=== PATIENT | male | born 1945 | race Caucasian/White ===

== ENCOUNTER → 2016-12-22 | Outpatient (CLI) | payer OTHER | LOC: BMCIMAGING 12:34 | PROVIDERS: ATTEND Internal Medicine Rheumatology | DX: Z13.828 Encounter for screening for other musculoskeletal disorder (principal); M11.262 Other chondrocalcinosis, left knee ==

== ENCOUNTER → 2017-07-01 | Outpatient (CLI) | payer OTHER | LOC: FIMAGING 12:54 | PROVIDERS: ATTEND Nurse Practitioner Adult Health | DX: M75.121 Complete rotator cuff tear or rupture of right shoulder, not specified as traumatic (principal); M75.81 Other shoulder lesions, right shoulder; M19.011 Primary osteoarthritis, right shoulder ==

== ENCOUNTER → 2017-08-28 | Outpatient (CLI) | payer OTHER | LOC: FIMAGING 10:01 | PROVIDERS: ATTEND Internal Medicine Endocrinology, Diabetes & Metabolism | DX: Z13.820 Encounter for screening for osteoporosis (principal); M85.80 Other specified disorders of bone density and structure, unspecified site ==

== ENCOUNTER 2017-09-24 11:07 | Observation (INO) | payer OTHER ==
[2017-09-24] MEDS ORDERED: DIAZEPAM 5 MG TAB PO ONE (11:15)
[2017-09-24] MEDS ORDERED: FAMOTIDINE 20 MG TAB PO ONE (11:15)
[2017-09-24] MEDS ORDERED: NS 1,000 ML IV ONE (11:15)
[2017-09-24] MEDS ORDERED: diphenhydrAMINE 25 MG CAP PO ONE ×2 (11:15→11:41)
[2017-09-24] MEDS ORDERED: ASPIRIN EC 325 MG TAB PO ONE ×2 (11:15→11:41)
--- NOTE | 2017-09-24 11:36 | CPEKG ---
Heart Rate: 56 RR Interval: 1071 P-R Interval: 144 QRSD Interval: 90 QT Interval: 440 QTC Interval: 425 P [place]: 12 QRS [place]: 37 T Wave [place]: 15 EKG Severity - NORMAL ECG - EKG Impression: SINUS RHYTHM Electronically Signed By: Catherine Rivera 24-Sep-2017 13:31:21
[2017-09-24] MEDS ORDERED: DIAZEPAM 5 MG TAB ONE (11:42)
[2017-09-24] MEDS ORDERED: CLOPIDOGREL BISULFATE 75 MG TAB PO ONE ×2 (11:45→15:33)
[2017-09-24 11:52] LABS: PLATELET COUNT 250 10^3/uL (150-400)
[2017-09-24 12:10] LABS: INR 0.97 (0.83-1.16); PROTIME(PATIENT) 13.1 SEC (12.0-15.0)
[2017-09-24] MEDS ORDERED: LIDOCAINE 1% 300 MG/30 ML SDV ONE (12:34)
[2017-09-24] MEDS ORDERED: fentaNYL 100 MCG/2 ML INJ ONE ×3 (12:35→14:49)
[2017-09-24] MEDS ORDERED: MIDAZOLAM 2 MG/2 ML VIAL ONE ×4 (12:35→14:49)
[2017-09-24] MEDS ORDERED: IOPAMIDOL (ISOVUE-370) 150 ML BTL IV ONE ×2 (12:35→14:32)
--- NOTE | 2017-09-24 12:36 | PDPROPOC ---
Sedation Plan of Care Sedation Plan of Care: vital signs stable, mental status noted, patient educated of risks, benefits, alternatives, patient can tolerate sedation ASA Classification: ASA 2 Planned drugs: fentanyl, midazolam Mallampati Score: Class 2 Mallampati Reference Image: Patient passed 3-3-2 rule?: Yes
--- NOTE | 2017-09-24 12:36 | PDHPUP ---
History & Physical Update H&P update statement: This history and physical update is based on an assessment of the patient which was completed after admission or registration (within 24 hours), but prior to the surgery/procedure. H&P update: H&P reviewed & patient examined, no change in patient's condition since H&P completed
[2017-09-24] MEDS ORDERED: HEPARIN 10,000 UNIT/10 ML MDV (1,000 UNIT/ML) ONE ×2 (13:13→14:19)
[2017-09-24] MEDS ORDERED: NITROGLYCERIN 1,500 MCG/15 ML VIAL MISC ONE (14:30)
[2017-09-24] MEDS ORDERED: TEMAZEPAM 15 MG CAP PO PRN (15:33)
[2017-09-24] MEDS ORDERED: ONDANSETRON 4 MG/2 ML VIAL IVP PRN (15:33)
[2017-09-24] MEDS ORDERED: LORazepam 2 MG/ML INJ IVP PRN (15:33)
[2017-09-24] MEDS ORDERED: ATROPINE SULFATE 1 MG/10 ML SYR IVP PRN (15:33)
[2017-09-24] MEDS ORDERED: NITROGLYCERIN 0.4 MG BTL SL PRN (15:33)
--- NOTE | 2017-09-24 15:40 | PDDXCAT ---
Diagnostic Cath Note - . Date: 09/25/17 Java Developer Architect: Gareth Indication: CCC Class III and IV angina on medical treatment - Procedure Access: right groin Procedure: left heart catheterization, MELO injection - Materials Left Heart Cath size: 5F Left Heart Cath materials: standard multipack (JL4, JR4, pigtail) - Findings-Left Heart Catheterization LM: unobstructed LAD: 100% occluded LCX: OM1 90% RCA: Stents patent MELO: Patent Complications: Dissection OM with failed stent placement, Balloon only Estimated blood loss: <100ml Closure method: Angioseal Assessment: Unstable angina with culprit OM1. Patent MELO. Patent RCA stent Plan: PCI OM! Intervention: Procedure: Balloon angioplasty of the obtuse marginal branch. Indications: Unstable angina with elevation in troponin and 3 days of crescendo chest pain. Complications: Dissection of the obtuse marginal branch. Veronique procedure old myocardial infarction. Inability to deliver stent secondary to proximal calcification. After reviewing diagnostic angiograms it was elected to proceed with PCI. Patient was anticoagulated with heparin. Patient sheath was upsized to a 7 Andorran in the right femoral artery. Using a 7 Andorran JL4 guiding catheter left main coronary was selectively intubated. Therapeutic ACT was confirmed. For details of the procedure please see attached computer report. Using a 0.014 luge wire multiple attempts at crossing the obtuse marginal branch stenosis were made. The takeoff of the marginal branch was 90 degrees from this body of the circumflex artery at the proximal segment was heavily calcified. The lesion was 90 degrees from the origin with critical stenosis. After multiple attempts and multiple reshaped being the luge wire eventually did cross into the culprit vessel. Attempts at crossing with a 2.25 balloon were made but the balloon would not enter the calcified segment. A 0.014 mailman wire was used as a jen. Again this required significant manipulation to get the wire into the superior limb of the obtuse marginal branch. This allowed passage of a 1.25 emerge balloon. 3 inflations were performed with continued antegrade flow. Attempts at crossing with a 2.25 emerge balloon were made but failed. Attempts at using both a GuideLiner catheter and a Twin Pass to allow passage of a 2nd wire were made but failed. Attempts at crossing into the culprit vessel with a Kinetix Plus wire were made but failed. Wires were withdrawn ultimately. It was elected to up size to a 7 Andorran EBU 3.75 guiding catheter. Using a 0.014 airplane pilot photogrammetry 50 wire with multiple manipulations this crossed into the obtuse marginal branch across the stenosis. The 2.25 emerge balloon crossed. 3 inflations were performed to 2.5 mm. This showed significant improvement in luminal diameter with a linear dissection. There was antegrade flow. There was GALINDO grade 1-2 flow distally. Attempts at crossing with a synergy stent were made but failed. Using the Twin Pass catheter and Sanovas wire was advanced into the distal obtuse marginal branch. Using a jen technique this still did not allow passage of synergy stent. Attempts at other brands of stent including a Xience and a bare metal stent were made but failed. The 2.25 balloon was then used to re-approach the dissected vessel. Prolonged inflations were performed. There was no compromise of the true circumflex which is codominant supplying the entire posterolateral wall. Final angiograms revealed GALINDO grade 1-2 flow in the distal obtuse marginal branch. No compromise proximally. It was elected to stop at this time since further intervention would require stenting across the osage circumflex with significant branch vessel threat. Patient was pain free with stable hemodynamics. Echocardiogram showed normal LV systolic function. EKG did not show significant changes. He was taken to recovery for continued care. Final diagnosis balloon angioplasty of the obtuse marginal branch complicated by dissection and veronique procedural myocardial infarction. This was tolerated well. Continued aggressive secondary prevention with clinical follow-up. Patient Problems: Problems Problem Status Onset Angina Active CAD - Coronary arteriosclerosis Active Coronary artery bypass grafting Active
[2017-09-24] MEDS ORDERED: NS 1,000 ML IV SCH (15:45)
--- NOTE | 2017-09-24 16:11 | CPEKG ---
Heart Rate: 53 RR Interval: 1132 P-R Interval: 148 QRSD Interval: 86 QT Interval: 456 QTC Interval: 429 P [place]: 5 QRS [place]: 33 T Wave [place]: 36 EKG Severity - NORMAL ECG - EKG Impression: SINUS RHYTHM EKG Impression: ANTERIOR T-WAVE ABNORMALITIES EKG Impression: COMPARED WITH 09/24/2017 11:35 A.M., ANTERIOR T-WAVE ABNORMALITIES ARE ARE MORE EKG Impression: PRONOUNCED Electronically Signed By: Catherine Rivera 25-Sep-2017 18:17:41
--- NOTE | 2017-09-24 19:26 | ECHO ---
[email or web address] [address] Main: [phone] Fax: Transthoracic Echocardiogram Name: JOVITA HERNANDEZ MR#: [id number] Study Date: 09/24/2017 Study Time: 04:16 PM Date of : 1945 Age: 72 year(s) Height: 177.8 cm (70 in.) Weight: 76.2 kg (168 lb.) BSA: 1.94 m2 Gender: Male Examination: Echo Indication: PCI with dissected OM/Eval LV function Image Quality: Contrast: Requested by: Vin Servin BP: 147 mmHg/93 mmHg Heart Rate: Rhythm: Indication: PCI with dissected OM/Eval LV function Procedure Staff Box Stapler: Caren Castellon Reading Physician: Catherine Rivera Requesting Provider: Conclusions: Normal size left ventricle. The ejection fraction is estimated to be 40-45 %. LV septal wall and inferior segments are hypokinetic. Mildly dilated right ventricle. Normal RV function. Mild mitral valve regurgitation is present. Mild tricuspid regurgitation is present. The pulmonary artery pressure is normal. Mildly dilated aortic root measuring 4.4 cm. No previous echocardiogram available for comparison. Measurements: Chambers Valvular Assessment AV/MV Valvular Assessment TV/PV Normal Normal Normal Name Value Range Name Value Range Name Value Range IVSd (2D): 0.7 cm (0.6 cm-1.1 AV Vmax: 0.87 m/s (1 m/s-1.7 TR Vmax: 2.71 mm/s ( - ) cm) m/s) TR PGmax: 29 mmHg ( - ) LVDd (2D): 4.6 cm (4.2 cm-5.9 AV maxP mmHg ( - ) syst. PAP: 34 mmHg ( - ) cm) MV E Vmax: 0.95 m/s ( - ) LVDs (2D): 3.4 cm (2.1 cm-4 MV A Vmax: 0.67 m/s ( - ) cm) MV E/A: 1.42 ( - ) LVPWd (2D): 0.8 cm (0.6 cm-1 cm) EF Range: 40-45 % Continued Measurements: Chambers Valvular Assessment TV/PV Name Value Name Value Patient: JOVITA HERNANDEZ Study Date: 09/24/2017 Page 1 of 2 04:16 PM LADs: 4.2 cm CVP (est.): 5 mmHg LADs Lon.5 cm LA Area: 22.0 cm2 Findings: Left Ventricle: Normal size left ventricle. The ejection fraction is estimated to be 40-45 %. LV septal wall and inferior segments are hypokinetic. Right Ventricle: Mildly dilated right ventricle. Normal RV function. Left Atrium: The left atrium is normal in size. Right Atrium: The right atrium is normal in size. Mitral Valve: The mitral valve is normal in appearance and function. Mild mitral valve regurgitation is present. Aortic Valve: The aortic valve is normal in appearance and function. Trivial aortic valve regurgitation. Tricuspid Valve: The tricuspid valve is normal in appearance and function. Mild tricuspid regurgitation is present. The pulmonary artery pressure is normal. Pulmonic Valve: The pulmonic valve is normal in appearance and function. Trivial pulmonic valve regurgitation. Aorta: The aorta is normal. Mildly dilated aortic root measuring 4.4 cm. Pericardium: No pericardial effusion. Exam Comments: For accurate EF, repeat a lmt study when pt can roll onto left side.. (No Signature Object) Patient: JOVITA HERNANDEZ Study Date: 09/24/2017 Page 2 of 2 04:16 PM [id number]
[2017-09-24] MEDS ORDERED: DOCUSATE SODIUM 100 MG CAP PO SCH (21:00)
[2017-09-24] MEDS ORDERED: ALPRAZolam 1 MG TAB PO SCH (21:00)
[2017-09-24] MEDS ORDERED: MELATONIN 3 MG TAB PO SCH (21:00)
[2017-09-24] MEDS ORDERED: QUEtiapine FUMARATE 50 MG TAB PO SCH (21:00)
[2017-09-25] MEDS ORDERED: ACETAMINOPHEN 325 MG TAB ONE (02:02)
[2017-09-25 04:27] LABS: PLATELET COUNT 203 10^3/uL (150-400)
[2017-09-25 04:50] LABS: CREATINE KINASE 403 IU/L (0-224)
[2017-09-25] MEDS ORDERED: LEVOTHYROXINE 50 MCG TAB PO SCH (06:00)
[2017-09-25 07:18] VITALS: PULSE 61; RESP 15; TEMP 97.9; O2SAT 92
[2017-09-25] MEDS ORDERED: RAMIPRIL 2.5 MG CAP PO SCH (09:00)
[2017-09-25] MEDS ORDERED: HYDROCHLOROTHIAZIDE 25 MG TAB PO SCH (09:00)
[2017-09-25] MEDS ORDERED: ARIPiprazole 2 MG TAB PO SCH (09:00)
[2017-09-25] MEDS ORDERED: PANTOPRAZOLE SODIUM 40 MG TAB PO SCH (09:00)
[2017-09-25] MEDS ORDERED: buPROPion XL 150 MG TAB PO SCH (09:00)
[2017-09-25] MEDS ORDERED: CLOPIDOGREL BISULFATE 75 MG TAB PO SCH (09:00)
[2017-09-25] MEDS ORDERED: METOPROLOL SUCCINATE XR 100 MG TAB PO SCH (09:00)
[2017-09-25] MEDS ORDERED: ASPIRIN EC 325 MG TAB PO SCH (09:00)
--- NOTE | 2017-09-25 09:22 | PDDCSUM ---
Discharge Summary Discharge Summary: Admission date 09/24/2017 Discharge date 09/25/2017 Admission diagnosis: Unstable angina Discharge diagnosis: Unstable angina status post balloon angioplasty of the obtuse marginal branch Procedural myocardial infarction. Coronary artery disease status post bypass grafting with patent mammary artery to the LAD. Widely patent RCA stent. Hyperlipidemia. Status post arthroscopy of the right shoulder. Depression. Discharge medications: Please see the attached form 17. Follow-up Gareth one week referral cardiac rehabilitation. Procedures done during this hospitalization: Echocardiogram. Cardiac catheterization with balloon angioplasty of the obtuse marginal branch. Hospital course: 72-year-old male admitted to the hospital for diagnostic cardiac catheterization with 3 day history of atypical chest pain with borderline troponin. Cardiac catheterization revealed critical stenosis of the obtuse marginal branch and heavily calcified circumflex artery. PCI was performed. This was complicated by dissection of the obtuse marginal branch with reduced flow in the emliie procedural myocardial infarction with elevated CPK to the 400 range. He was asymptomatic without angina. He had stable hemodynamics. Echocardiogram done post procedure showed preserved LV function without involvement of the mitral valve. He was observed overnight no dysrhythmia was identified. On examination today blood pressure was 100/70. Heart rate was 65. Well-nourished male resting flat in bed. No JVP chest was clear without S4. Puncture site was healing well without ecchymosis erythema or edema. EKG showed sinus rhythm without ST-T changes. Patient be followed up with aggressive secondary prevention clinical follow-up. Results were discussed with the patient including dissection and emilie procedural myocardial infarction. He will be followed up as outlined above.
[2017-09-25 10:27] VITALS: BP 97/61
--- NOTE | 2017-09-25 13:58 | ASDISCHSUM ---
Discharge Information Plan Status:Home with No Needs Medically Cleared to Leave:09/24/2017 Discharge Date:09/25/2017 10:54 AM CM D/C Disposition: ADT D/C Disposition:Home, Routine, Self-Care Projected Discharge Date:09/25/2017 12:00 AM Transportation at D/C: Discharge Delay Reason: Follow-Up Date:09/25/2017 12:00 AM Discharge Slot: Final Diagnosis: Placement Information Patient Contact Information Contact Name:EVELIA Relationship:Daughter Address: Work Phone: City: [facility] Phone: State/Zip Code: Email: Financial Information Financial Class: Primary Plan Desc:MEDICARE OUTPATIENT Primary Plan Number:[id number] Secondary Plan Desc:[facility] PPO POS Secondary Plan Number:[id number] Assessment Information Intervention Information
== END 2017-09-25 10:54 | disposition home or self-care (01) ==
LOC: FCATH 11:07 → F2W 16:01
PROVIDERS: ADMIT Internal Medicine Interventional Cardiology; ATTEND Internal Medicine Interventional Cardiology
PROC: B2111ZZ Fluoroscopy of Multiple Coronary Arteries using Low Osmolar Contrast (ICD-10-PCS; principal; 2017-09-24)
DX: I25.119 Atherosclerotic heart disease of native coronary artery with unspecified angina pectoris (principal); I25.42 Coronary artery dissection; I97.790 Other intraoperative cardiac functional disturbances during cardiac surgery; I10 Essential (primary) hypertension; E78.5 Hyperlipidemia, unspecified; F32.9 Major depressive disorder, single episode, unspecified; K21.9 Gastro-esophageal reflux disease without esophagitis; I73.00 Raynaud's syndrome without gangrene; Z95.1 Presence of aortocoronary bypass graft; Z95.5 Presence of coronary angioplasty implant and graft
CPT/HCPCS: 92920; 93005; 93306; 93454; C1725; C1760; C1769; C1887; J1644; J2250; J3010; Q9967

== ENCOUNTER → 2018-01-22 | Outpatient (CLI) | payer OTHER | LOC: FIMAGING 12:52 | PROVIDERS: ATTEND Internal Medicine Endocrinology, Diabetes & Metabolism | DX: E04.1 Nontoxic single thyroid nodule (principal) ==

== ENCOUNTER → 2018-06-16 | Outpatient (CLI) | payer OTHER | LOC: BMCIMAGING 08:02 | PROVIDERS: ATTEND Urology | DX: N40.0 Benign prostatic hyperplasia without lower urinary tract symptoms (principal); R33.8 Other retention of urine; N28.1 Cyst of kidney, acquired; N20.0 Calculus of kidney ==

== ENCOUNTER 2018-07-01 07:32 | Observation (INO) | payer OTHER ==
[2018-07-01] MEDS ORDERED: LR 1,000 ML IV ONE (07:52)
[2018-07-01] MEDS ORDERED: LIDOCAINE 1% 2 ML INJ ID PRN (07:52)
[2018-07-01] MEDS ORDERED: VANCOMYCIN HCL/NORMAL SALINE 250 ML IV ONE (08:27)
[2018-07-01] MEDS ORDERED: GENTAMICIN SULFATE 120 MG in D5W 100 ML IV ONE (08:28)
[2018-07-01] MEDS ORDERED: MIDAZOLAM 2 MG/2 ML VIAL IVP ONE (08:58)
--- NOTE | 2018-07-01 09:00 | PDANEPAE ---
ANE History of Present Illness TURP for BPH ANE Past Medical History - Cardiovascular History Hx Hypertension: Yes Hx Arrhythmias: No Hx Chest Pain: No Hx Coronary Artery / Peripheral Vascular Disease: Yes Hx CHF / Valvular Disease: No Hx Palpitations: No Cardiovascular History Comment: CABG, 1990. last cath 08/2017 w/angioplasty - Pulmonary History Hx COPD: No Hx Asthma/Reactive Airway Disease: No Hx Recent Upper Respiratory Infection: No Hx Oxygen in Use at Home: No Hx Sleep Apnea: No Sleep Apnea Screening Result - Last Documented: Positive Pulmonary History Comment: MEG triggers only - Neurologic History Hx Cerebrovascular Accident: No Hx Seizures: No Hx Dementia: No - Endocrine History Hx Diabetes: Yes Endocrine History Comment: hypothyroid - Renal History Hx Renal Disorders: Yes Renal History Comment: BPH w/resulting bladder issues. cystitis. frequent UTI' s - Liver History Hx Hepatic Disorders: No - Neurological & Psychiatric Hx Hx Neurological and Psychiatric Disorders: Yes Neurological / Psychiatric History Comment: depresssion - Cancer History Hx Cancer: Yes Cancer History Comment: throat cancer - Congenital Disorder History Hx Congenital Disorders: No - GI History Hx Gastrointestinal Disorders: Yes Gastrointestinal History Comment: reflux. constipation - Other Health History Other Health History: wears glasses - Chronic Pain History Chronic Pain: No - Surgical History Prior Surgeries: cardiac caths w/stenting. CABG. radical neck resection for lymph node removal. perforated ulcer with open surgical repair ANE Review of Systems Review of Systems: - Exercise capacity METS (RN): 4 METS ANE Patient History - Allergies Allergies/Adverse Reactions: mussels Allergy (Verified 07/01/18 08:40) Abdominal Pain - Home Medications Home Medications: ALPRAZolam [Xanax 0.5 MG (*)] HS 09/22/17 [Last Taken 06/30/18 21:00] ARIPiprazole [Abilify 2 mg (*)] DAILY 09/22/17 [Last Taken 06/30/18 10:00] Aspirin [Aspirin 81mg (*)] HS 09/22/17 [Last Taken 06/24/18] Clopidogrel Bisulfate [Plavix (*)] DAILY 09/22/17 [Last Taken 06/24/18] Hydrochlorothiazide [HCTZ (*)] DAILY 09/22/17 [Last Taken 06/30/18 10:00] Levothyroxine [Synthroid 50 mcg (*)] DAILY06 09/22/17 [Last Taken 06/30/18 10:00 ] Melatonin [Melatonin 5 mg] HS 09/22/17 [Last Taken 06/30/18 21:00] Metoprolol Succinate Xr [Toprol Xl 100 mg (*)] DAILY 09/22/17 [Last Taken 10:00] Pantoprazole Sodium [Protonix 40mg (*)] DAILY 09/22/17 [Last Taken 06/30/18 10: 00] QUEtiapine FUMARATE [Seroquel 50 mg (*)] HS 09/22/17 [Last Taken 06/30/18 21:00] Ramipril [Altace 2.5mg (*)] DAILY 09/22/17 [Last Taken 06/30/18 10:00] buPROPion XL [Wellbutrin Xl] DAILY 09/22/17 [Last Taken 06/30/18 10:00] Lipitor DAILY 06/17/18 [Last Taken 06/30/18 21:00] Miralax 17 gm (*) 06/17/18 [Last Taken 06/30/18 21:00] - NPO status NPO Since - Liquids (Date): 06/30/18 NPO Since - Liquids (Time): 18:00 NPO Since - Solids (Date): 06/30/18 NPO Since - Solids (Time): 18:00 - Smoking Hx Smoking Status: Former smoker - Family Anes Hx Family Hx Anesthesia Complications: none ANE Labs/Vital Signs - Vital Signs Blood Pressure: 139/97 Heart Rate: 54 Respiratory Rate: 16 O2 Sat (%): 95 Height: 175.26 cm Weight: 74.843 kg ANE Physical Exam - Airway Neck exam: FROM Mallampati Score: Class 1 Mouth exam: normal dental/mouth exam - Pulmonary Pulmonary: no respiratory distress - Cardiovascular Cardiovascular: regular rate and rhythym - ASA Status ASA Status: II ANE Anesthesia Plan Anesthesia Plan: GA w LMA
[2018-07-01] MEDS ORDERED: fentaNYL 100 MCG/2 ML INJ ONE ×3 (09:07→13:14)
[2018-07-01] MEDS ORDERED: DEXAMETHASONE 4 MG/ML VIAL ONE ×2 (09:08)
[2018-07-01] MEDS ORDERED: PROPOFOL 200 MG/20 ML VIAL ONE (09:08)
[2018-07-01] MEDS ORDERED: ONDANSETRON 4 MG/2 ML VIAL ONE (09:08)
[2018-07-01] MEDS ORDERED: LIDOCAINE 2% 2 ML INJ ONE ×2 (09:09)
--- NOTE | 2018-07-01 09:18 | PDHPUP ---
History & Physical Update H&P update statement: This history and physical update is based on an assessment of the patient which was completed after admission or registration (within 24 hours), but prior to the surgery/procedure. H&P update: H&P reviewed & patient examined, no change in patient's condition since H&P completed, changes noted (Reported urine cx day, sens to vanco, gent - vanco started in preop. Otherwise all other components H&P up to date and accurate. )
[2018-07-01] MEDS ORDERED: ONDANSETRON 4 MG/2 ML VIAL IVP PRN (09:21)
[2018-07-01] MEDS ORDERED: ACETAMINOPHEN 325 MG TAB PO PRN (09:22)
[2018-07-01] MEDS ORDERED: HYDROmorphONE/DILAUDID 1 MG/ML INJ IVP PRN (09:23)
[2018-07-01] MEDS ORDERED: D5W LR 1,000 ML IV SCH (09:30)
[2018-07-01] MEDS ORDERED: LABETALOL HCL 5 MG/ML 20 ML MDV IVP PRN (10:10)
[2018-07-01] MEDS ORDERED: NALOXONE HCL 0.4 MG/ML INJ IVP PRN (10:10)
[2018-07-01] MEDS ORDERED: LR 500 ML IV PRN (10:10)
[2018-07-01] MEDS ORDERED: LIDOCAINE 2% JELLY 20 ML (UROJECT) ONE (10:29)
[2018-07-01] MEDS ORDERED: GENTAMICIN 100 MG/NACL 100 ML IV SCH (11:00)
[2018-07-01] MEDS ORDERED: HYDROCODONE/APAP 5/325 TAB ONE (11:02)
[2018-07-01] MEDS: fentaNYL 100 MCG/2 ML INJ IVP PRN ×4 (11:03→13:20)
[2018-07-01] MEDS: HYDROCODONE/APAP 5/325 TAB PO PRN ×2 (11:19→15:27)
[2018-07-01] MEDS ORDERED: HYDROmorphONE/DILAUDID 2 MG/ML INJ ONE (11:55)
[2018-07-01] MEDS: HYDROmorphONE/DILAUDID 2 MG/ML INJ IVP PRN ×2 (11:56→13:19)
--- NOTE | 2018-07-01 12:21 | GOP ---
DATE OF OPERATION: 07/01/2018 SURGEON: Minnie Warren MD ANESTHESIA: General. ANESTHESIOLOGIST: Austyn Branham MD PREOPERATIVE DIAGNOSIS: BPH with urinary retention. POSTOPERATIVE DIAGNOSIS: BPH with urinary retention. PROCEDURE PERFORMED: Cystoscopy and transurethral resection of prostate in saline. FINDINGS: Obstructed prostate. SPECIMENS: Prostate chips. ESTIMATED BLOOD LOSS: 75 mL. INDICATIONS: The patient presented to my office with significant urinary retention, as well as recurrent UTIs. He was scoped in my clinic and he had a prostate that was very obstructing and recommended management was a transurethral resection of the prostate. We discussed the risks of bleeding, infection, pain, injury to the urethra, the bladder, urinary sphincter, small risk of urinary incontinence, small risk of erectile dysfunction, and risk of retrograde ejaculation. Also, risk of urethral stricture, bladder neck contracture and need for subsequent procedures. He understood these risks and agreed to proceed. DESCRIPTION OF PROCEDURE: He was taken back to the cystoscopy suite, placed on the cystoscopy table in a supine position. General anesthesia induced without complication. Time-out performed and core measures satisfied, including placement of a Lorenza Hugger, SCDs, and administration of vancomycin and gentamicin antibiotics due to recent urine culture reports. He was brought to the end of the table, placed in dorsal lithotomy position. All pressure points padded. Genitalia draped and prepped in the standard surgical fashion with Betadine. His urethral meatus was dilated gently with Strang sounds, and then, a visual obturator with sheath was advanced atraumatically through the urethra and into the bladder. The urethra was normal. The TURIS resectoscope was assembled and the right and left ureteral orifices were identified, and the resection began at the bladder neck well away from the ureteral orifices at the 5 and 7 position. Then, the central zone tissue was taken down all the way back from the bladder neck to the verumontanum, but did not violate the verumontanum. Also, the verumontanum was kept in visualization during the entire case as to make sure not to go more distal than the verumontanum with the resection. Resection then continued from the posterior tissue, then the left lateral lobe, than the right lateral lobe, and then, the anterior tissue. His main problem was this obstructing anterior tissue as he had more anterior tissue than typical prostate. At the end of the procedure, I was very pleased with resection. I inspected the verumontanum and he was completely open and looked straight into the bladder. All the prostate chips were gathered with the Ellik evacuator and hemostasis was excellent. I did use liberal cautery to gain hemostasis from the prostate bed. At the end of the resection, I was very pleased. All the prostate chips were removed. The resectoscope was removed and lidocaine jelly placed per urethra, and then, a 24 three-way catheter was placed. It was mainly irrigated with about 160 mL of normal saline and the irrigant was clear. There were no additional prostate chips obtained, and continuous bladder irrigation was started and was clear. He was then woken from anesthesia and transferred to PACU in good condition. He tolerated the procedure well. He will be admitted overnight for observation. COMPLICATIONS: None. The patient tolerated the procedure well. /[id number]/MODL MTDD
--- NOTE | 2018-07-01 12:52 | POSTANESTH ---
Post Anesthetic Evaluation Cardiovascular Status: Normal, Stable Respiratory Status: Normal, Stable Level of Consciousness/Mental Status: Can Participate in Eval Pain Control: Adequate, Prn Tx Ordered Nausea/Vomiting Control: Adequate, Prn Tx Ordered Complications Possibly Related to Anesthesia: None Noted
--- NOTE | 2018-07-01 13:23 | POSTOPPROG ---
Post Op Note Date of Operation: 07/01/18 Surgeon: iMnnie Warren Anesthesia: GET(General Endotracheal) Pre-op Diagnosis: BPH w urinary retention Post-op Diagnosis: same Indication: BPH w urinary retention Procedure: cysto, TURP in saline Findings: BPH Inf/Abcess present in the surg proc area at time of surgery?: No EBL: 50-100 Complications: none, pt tolerated procedure well Drains: Other (barnes)
--- NOTE | 2018-07-01 15:00 | ASMTCMCOM ---
CM Note CM Note Notes: Patient s/p Turp. Significant history for tongue cancer, CABG, and numerous other dx. CM to follow for needs. Plan: TBD Date Signed: 07/01/2018 02:59 PM Electronically Signed By:Chiara Kiser RN
[2018-07-01] MEDS ORDERED: ALPRAZolam 1 MG TAB PO PRN (20:21)
[2018-07-01] MEDS ORDERED: ATORVASTATIN CALCIUM 40 MG TAB PO SCH (21:00)
[2018-07-01] MEDS ORDERED: MELATONIN 3 MG TAB PO SCH (21:00)
[2018-07-01] MEDS ORDERED: POLYETHYLENE GLYCOL 3350 17 GM PKT PO SCH (21:00)
[2018-07-01] MEDS ORDERED: QUEtiapine FUMARATE 50 MG TAB PO SCH (21:00)
[2018-07-01] MEDS: SENNOSIDES/DOCUSATE SODIUM TAB PO SCH (21:47)
[2018-07-01] MEDS ORDERED: SIMETHICONE 80 MG TAB CHEW PO PRN (23:54)
[2018-07-02] MEDS: HYDROCODONE/APAP 5/325 TAB PO PRN (01:41)
[2018-07-02] MEDS ORDERED: LEVOTHYROXINE 88 MCG TAB PO SCH (06:00)
[2018-07-02] MEDS ORDERED: VANCOMYCIN 1.5 GM in NS 250 ML IV SCH (08:00)
[2018-07-02] MEDS ORDERED: buPROPion XL 150 MG TAB PO SCH (09:00)
[2018-07-02] MEDS ORDERED: HYDROCHLOROTHIAZIDE 25 MG TAB PO SCH (09:00)
[2018-07-02] MEDS ORDERED: ARIPiprazole 2 MG TAB PO SCH (09:00)
[2018-07-02] MEDS ORDERED: METOPROLOL SUCCINATE XR 100 MG TAB PO SCH (09:00)
[2018-07-02] MEDS ORDERED: RAMIPRIL 2.5 MG CAP PO SCH (09:00)
[2018-07-02] MEDS ORDERED: VANCOMYCIN HCL/NORMAL SALINE 250 ML IV SCH (09:00)
[2018-07-02] MEDS ORDERED: FLUTICASONE NASAL 120 SPRAYS/16 GM MDI EACHNARE SCH (09:00)
[2018-07-02] MEDS ORDERED: PANTOPRAZOLE SODIUM 40 MG TAB PO SCH (09:00)
[2018-07-02] MEDS: SENNOSIDES/DOCUSATE SODIUM TAB PO SCH (09:27)
--- NOTE | 2018-07-02 10:01 | SOAPPROG ---
SOAP Progress Note Assessment/Plan: Assessment: Postop TURP, doing well. Urine clear, barnes out. Voiding trial underway. Plan: Home today. If voids and low residual, then home wo barnes. If unable to void or high residual, then will replace barnes and repeat voiding trial next week in my office. Otherwise, hold plavix and ASA for 5 days. Resume all other home meds. 07/02/18 09:58 Subjective: NAEON, feeling well, barnes just removed. Sitting at bedside trying to void. Mckenzie diet. +ambulating Objective: Vital Signs Temp Pulse Resp BP Pulse Ox 36.8 C 53 L 14 110/63 91 L 07/02/18 08:00 07/02/18 08:00 07/02/18 08:00 07/02/18 08:00 07/02/18 08:00 Laboratory Results 07/02/18 04:07 07/01/18 07/02/18 07/03/18 05:59 05:59 05:59 Intake Total 2100 120 Output Total 210 700 Balance 1890 -580 Gen NAD A&O CV regular Lungs normal effort Abd soft Ext warm barnes out, trying to void. - Pending Discharge Pending Discharge Within 24 Hours: Yes Pending Discharge Date: 07/03/18 Pending Discharge Time: 11:00 ICD10 Worksheet Patient Problems: Problems Problem Status Onset Angina Active CAD - Coronary arteriosclerosis Active Coronary artery bypass grafting Active
--- NOTE | 2018-07-02 10:59 | ASMTLACE ---
LACE Length of stay for Answers: 1 day current admission Acuity / Level of Answers: No Care: Did the patient have an inpatient admission? Comorbidities - select Answers: Any tumor (including all that apply lymphoma or leukemia) Coronary Artery Disease # of Emergency department Answers: 0 visits in the last 6 months Score: 5 Date Signed: 07/02/2018 10:58 AM Electronically Signed By:MAX Rai
--- NOTE | 2018-07-02 11:04 | ASDISCHSUM ---
Discharge Information Plan Status:Home with No Needs Medically Cleared to Leave:07/02/2018 Discharge Date:07/02/2018 CM D/C Disposition:Home, Routine, Self-Care ADT D/C Disposition:Home, Routine, Self-Care Projected Discharge Date:07/02/2018 Transportation at D/C:Family Discharge Delay Reason: Follow-Up Date:07/02/2018 Discharge Slot: Final Diagnosis: Placement Information Patient Contact Information Contact Name:EVELIA Relationship:Daughter Address: Work Phone: City: [facility] Phone: State/Zip Code: Email: Financial Information Financial Class:Medicare Primary Plan Desc:MEDICARE OUTPATIENT Primary Plan Number:[id number] Secondary Plan Desc:[facility] POS Secondary Plan Number:[id number] Assessment Information LACE LACE Length of stay for Answers: 1 day current admission Acuity / Level of Answers: No Care: Did the patient have an inpatient admission? Comorbidities - select Answers: Any tumor (including all that apply lymphoma or leukemia) Coronary Artery Disease # of Emergency department Answers: 0 visits in the last 6 months Score: 5 Date Signed: 07/02/2018 10:58 AM Electronically Signed By:MAX Rai [facility] CM Progress Note CM Note CM Note Notes: Patient s/p Turp. Significant history for tongue cancer, CABG, and numerous other dx. CM to follow for needs. Plan: TBD Date Signed: 07/01/2018 02:59 PM Electronically Signed By:Chiara Kiser RN Intervention Information
[2018-07-02 11:28] VITALS: BP 130/97
--- NOTE | 2018-07-02 12:06 | ASMTDCNOTE ---
Case Management Discharge Discharge Order Complete? Answers: Yes Patient to Obtain Answers: via Family Medications Transportation Arranged Answers: Family/Friends Discharge Comments Notes: Pt is s/p Turp and discharging home today with no CM needs. His daughter Seema will be taking him home and staying with him tonight. Date Signed: 07/02/2018 12:05 PM Electronically Signed By:MAX Rai
== END 2018-07-02 14:00 | disposition home or self-care (01) ==
LOC: FSGY 07:32 → F3E 09:19 → F1N 14:39
PROVIDERS: ADMIT Urology; ATTEND Urology
PROC: 0VT08ZZ Resection of Prostate, Via Natural or Artificial Opening Endoscopic (ICD-10-PCS; principal; 2018-07-01 09:15)
DX: N40.1 Benign prostatic hyperplasia with lower urinary tract symptoms (principal); R33.9 Retention of urine, unspecified
CPT/HCPCS: 52601; J0696; J1100; J1170; J1580; J2250; J2405; J2704; J3010; J3370